=== PATIENT | female | born 2000 | race Two or more races ===

== ENCOUNTER 2019-02-05 18:26 | Emergency (ER) | payer OTHER ==
--- NOTE | 2019-02-05 22:17 | ED ---
Influenza-Like Illness - HPI Summary HPI Summary: This pt is a 18 Y/O F presenting to [facility] with a CC of a possible ear infection. She states that she gets them frequently and has been feeling pain in her ears that are rated a 5/10 in severity. She states that she has had increased pressure in her face and ears for the last 4 days which is worse in the R ear, starting on 01/30/19. She denies any sore throat, fevers, chills, N/V , CP, or SOB. She states that her last ear infection was 4 months ago. She has not been to see her PCP in a long time. - History of Current Complaint Chief Complaint: EDEarPain Time Seen by Provider: 02/05/19 21:15 Hx Obtained From: Patient Onset/Duration: Sudden Onset, Lasting Days - 4, Still Present Severity: Moderate - 5/10 Associated Signs & Symptoms: Negative - sore throat, fevers, chills, N/V, CP, or SOB. - Allergy/Home Medications Allergies/Adverse Reactions: Allergies Allergy/AdvReac Type Severity Reaction Status Date / Time No Known Allergies Allergy Verified 02/05/19 18:43 PMH/Surg Hx/FS Hx/Imm Hx Previously Healthy: Yes Endocrine/Hematology History: Denies: Hx Anemia Respiratory History: Denies: Hx Asthma - Immunization History Immunizations Up to Date: Yes Infectious Disease History: No Infectious Disease History: Denies: Traveled Outside the [place] in Last 30 Days - Social History Occupation: Student - [employer] Lives: Dormitory/Roommates Alcohol Use: Rare Hx Substance Use: No Substance Use Type: Reports: None Hx Tobacco Use: No Smoking Status (MU): Never Smoked Tobacco Review of Systems Negative: Fever, Chills ENT: Other - sinus pressure Positive: Ear Ache - R side is worse than L . Negative: Sore Throat Negative: Chest Pain Negative: Shortness Of Breath Negative: Vomiting, Nausea All Other Systems Reviewed And Are Negative: Yes Physical Exam - Summary Physical Exam Summary: Constitutional: Well-developed, Well-nourished, Alert. (-) Distressed Skin: Warm, Dry HENT: Normocephalic; Atraumatic, No exudates, tonsils are not enlarged Eyes: Conjunctiva normal Neck: Musculoskeletal ROM normal neck. (-) JVD, (-) Stridor, (-) Nuchal rigidity Cardio: Rhythm regular, rate normal, Heart sounds normal; Intact distal pulses; Radial pulses are 2+ and symmetric. (-) Murmur Pulmonary/Chest wall: Effort normal. (-) Respiratory distress, (-) Wheezes, (-) Rales Abd: Soft, (-) tenderness, (-) Distension, (-) Guarding, (-) Rebound Musculoskeletal: (-) Edema Lymph: (-) Cervical adenopathy Neuro: Alert, Oriented x3 Psych: Mood and affect Normal Triage Information Reviewed: Yes Vital Signs On Initial Exam: Initial Vitals Temp Pulse Resp BP Pulse Ox 98.5 F 113 18 167/113 100 02/05/19 18:42 02/05/19 18:42 02/05/19 18:42 02/05/19 18:42 02/05/19 18:42 Vital Signs Reviewed: Yes Diagnostics - Vital Signs Vital Signs Temp Pulse Resp BP Pulse Ox 02/05/19 20:37 98.3 F 110 16 153/97 98 02/05/19 18:42 98.5 F 113 18 167/113 100 - Laboratory Lab Statement: Any lab studies that have been ordered have been reviewed, and results considered in the medical decision making process. Flu Symptom Course/Dx - Course Course Of Treatment: This pt is a 18 Y/O F presenting to [facility] with a CC of a possible ear infection. She states that she gets them frequently and has been feeling pain in her ears that are rated a 5/10 in severity. He ears had no abnormalities during her PE. She will be discharged with a Dx of viral syndrome. - Diagnoses Provider Diagnoses: Viral syndrome Discharge ED - Sign-Out/Discharge Documenting (check all that apply): Patient Departure - discharge Patient Received Moderate/Deep Sedation with Procedure: No - Discharge Plan Condition: Stable Disposition: HOME Patient Education Materials: Viral Syndrome (ED) Referrals: [facility] [Outside] - Billing Disposition and Condition Condition: STABLE Disposition: Home - Attestation Statements Document Initiated by Scribe: Yes Documenting Scribe: Tima Toro Provider For Whom Scribe is Documenting (Include Credential): Rashaad George MD Scribe Attestation: Tima Cavanaugh, scribed for Rashaad George MD on 02/06/19 at 0752. Scribe Documentation Reviewed: Yes Provider Attestation: The documentation as recorded by the heideibeTima accurately reflects the service I personally performed and the decisions made by me, Rashaad George MD Status of [place] Document: Viewed
[2019-02-05 22:28] VITALS: BP 116/69
== END 2019-02-05 22:24 | disposition home or self-care (01) ==
LOC: ED 18:26
DX: B34.9 Viral infection, unspecified (principal); H92.01 Otalgia, right ear
CPT/HCPCS: 99282